=== PATIENT | male | born 1970 | race Caucasian/White ===

== ENCOUNTER 2023-05-04 18:36 | Emergency (ER) | payer OTHER ==
[~2023-05-04] VITALS: Ht 182.9 cm; Wt 89.8 kg
[2023-05-04] MEDS ORDERED: OXCARBAZEPINE 150 MG TABLET ONE (18:58)
[2023-05-04] MEDS ORDERED: OXCARBAZEPINE 150 MG TABLET PO ONE (19:00)
[2023-05-04 20:18] VITALS: BP 134/90
--- NOTE | 2023-05-04 20:18 | NUR ---
Patient discharged to home in stable condition. Written and verbal after care instructions given. Patient verbalizes understanding of instruction.
--- NOTE | 2023-05-04 20:19 | NUR ---
IV removed. Catheter intact and site benign. Pressure and 4x4 applied to site. No bleeding noted.
== END 2023-05-04 20:19 | disposition home or self-care (01) ==
LOC: ER 18:38
DX: G40.909 Epilepsy, unspecified, not intractable, without status epilepticus (principal); I10 Essential (primary) hypertension
CPT/HCPCS: 82962-TC